=== PATIENT | male | born 1995 | race African-American/Black ===

== ENCOUNTER 2023-10-29 14:38 | Emergency (ER) | payer BC, SELFPAY ==
[2023-10-29 16:15] LABS: SARS-CoV-2 NAA Rapid Test Not Detected (NotDetected)
== END 2023-10-29 16:10 | disposition home or self-care (01) ==
LOC: ERS 14:38
DX: B34.9 Viral infection, unspecified (principal); J11.1 Influenza due to unidentified influenza virus with other respiratory manifestations; F17.290 Nicotine dependence, other tobacco product, uncomplicated
CPT/HCPCS: 99284